=== PATIENT | female | born 1990 | race Caucasian/White ===

== ENCOUNTER 2017-02-28 06:19 | Emergency (ER) | payer MEDICAID ==
[~2017-02-28] VITALS: Ht 167.6 cm; Wt 65.0 kg
[2017-02-28] MEDS ORDERED: ONDANSETRON ODT 4 MG ONE (06:34)
[2017-02-28] MEDS ORDERED: ONDANSETRON ODT 4 MG PO ONE (07:00)
[2017-02-28 10:31] VITALS: BP 87/58
== END 2017-02-28 11:27 | disposition home or self-care (01) ==
LOC: ED 09:39
DX: F10.120 Alcohol abuse with intoxication, uncomplicated (principal)
CPT/HCPCS: 99283; Q0162